=== PATIENT | female | born 1945 | race Caucasian/White ===

== ENCOUNTER → 2024-01-12 09:49 | Outpatient (REF) | payer MEDICARE, OTHER, SELFPAY | LOC: HWRAD 09:49 | PROVIDERS: ATTENDING PHYSICIAN Internal Medicine | DX: M25.551 Pain in right hip (principal) | CPT/HCPCS: 73502 ==

== ENCOUNTER 2024-08-24 18:19 | Emergency (ER) | payer MEDICARE, OTHER, SELFPAY ==
[2024-08-24 18:20] VITALS: BP 174/103
[2024-08-24 19:04] LABS: COVID-19 Antigen Negative (Negative)
--- NOTE | 2024-08-24 20:29 | ED.GENMED ---
History of Present Illness
General
Chief Complaint: Head Injury
Source: patient
Time Seen by Provider: 08/24/24 20:09
History of Present Illness
History of Present Illness:
79-year-old female presents to the emergency room complaining of having a head injury. Patient fell yesterday struck her head. No loss of consciousness. Patient felt as if she was having some memory issues today. She informed her family of this
event prompting their visit to the emergency room. Patient denies any focal weakness. Patient has had several falls recently. They felt falls were related to medication interactions. Her meds were adjusted and she was better. A fall yesterday
occurred because her leg had 'fallen asleep' after having it in a single position while sitting for extended period of time. When she stood up her leg gave out she fell. Currently she is able to walk at her baseline. She should use a walker but
frequently does not. Family also note the patient's had persistent cough for the past week or so. No fever.
Phy Exam
Physical Exam
Physical Exam:
General: Awake, Alert, Oriented X3. No acute distress.
Vitals: unremarkable
Head: Atraumatic
Eyes: Pupils equal, EOMI
Throat: Airway intact, no exudates
Neck: Trachea midline
Lungs: Clear and equal b/l
Heart: Regular rate, no murmurs
Abd: Soft, Nontender, No pulsatile mass
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
Skin: Warm, dry, no rash
Extremities: pulses equal b/l, no edema
Course
Orders/Labs/Results
Orders:
Orders
08/24/24 18:32
COVID-19 Antigen Urgent
Source: Nasal Swab
Influenza A+B Rapid Molecular Urgent
ANA Source: Nasal Swab
Specimen Description:
08/24/24 20:28
CT Head W/o Iv Contrast Urgent
Comment:
Reason For Exam: fall, head injury
CR Chest - 2 Views Urgent
Comment:
Reason For Exam: persistent cough
Vital Signs
Initial and Last Documented VS:
Initial Vital Signs
Temp Pulse Resp BP Pulse Ox
97.9 F 66 20 174/103 94
08/24/24 18:20 08/24/24 18:20 08/24/24 18:20 08/24/24 18:20 08/24/24 18:20
Last Documented Vital Signs
Temp Pulse Resp BP Pulse Ox
97.9 F 67 20 152/90 95
08/24/24 18:20 08/24/24 22:00 08/24/24 22:00 08/24/24 22:00 08/24/24 22:00
MDM/Problems Addressed
Differential Diagnosis Includes:
Closed head injury, subdural, positive dementia, pneumonia, acute bronchitis
MDM/Problems Addressed:
Patient presents for evaluation due to some memory issues. Patient did fall yesterday. Head CT shows no acute abnormalities though she does have chronic changes. Patient's daughter was able to pull up a CT report from outside institution which is
consistent with CT report today. Patient has residual meningioma with very similar dimensions. Chest x-ray today shows no acute infiltrate. Patient had a cough for over 10 days. Will treat with doxycycline.
*Radiology
Radiology exam reviewed: radiology read reviewed
*Pulse Oximetry
Patient hypoxic: no
*Critical Care Note
Total Time (30-74mins, 75-104mins- exclusive of procedures): Not Applicable
ED Attending Note
-
Portions of this chart may have been created with voice recognition software.� Occasional wrong word or��sound alike� substitutions may have occurred due to the inherent limitations of voice recognition software.
Discharge Plan
Departure
Patient Disposition: Home (Routine Discharge)
Date of Disposition: 08/24/24
Time of Disposition: 22:21
Patient with high blood pressure during this ER visit?: Yes
Discharge Problem:
Head injury, Acute bronchitis
Instructions: Minor Head Injury (DC), Bronchitis, Adult ED, BLOOD PRESSURE
Prescriptions:
New
doxycycline hyclate 100 mg capsule
100 mg PO BID 7 Days Qty: 14 0RF
Referrals:
Judith Young MD [Family Provider] -
Interventions
Interventions:
*Risk Screen - Suicide Last Done: 08/24/24 20:52
*General Assessment Last Done: 08/24/24 20:52
*Neglect/Abuse Screening Last Done: 08/24/24 20:52
ED- Fall Risk Assessment Last Done: 08/24/24 20:51
*ED COVID-19 Vaccine History Last Done: 08/24/24 20:52
*Nursing Disposition Last Done: 08/24/24 22:38
ED- Neurological Assessment Last Done: 08/24/24 20:51
ED-Skin Assessment Last Done: 08/24/24 20:51
Discharge Date and Time
Discharge Date/Time: 08/24/24 22:40
Print Language: GUAMANIAN
[2024-08-24 20:50] VITALS: BMI 33.8
[2024-08-24 22:00] VITALS: BP 152/90
== END 2024-08-24 22:40 | disposition home or self-care (01) ==
LOC: EMR 18:19
PROVIDERS: Emergency Medicine; EMERGENCY PHYSICIAN Emergency Medicine; FAMILY PHYSICIAN Internal Medicine
DX: S09.90XA Unspecified injury of head, initial encounter (principal); W19.XXXA Unspecified fall, initial encounter; J20.9 Acute bronchitis, unspecified; D32.0 Benign neoplasm of cerebral meninges
CPT/HCPCS: 99284; 70450; 71046; 87502; 87811

== ENCOUNTER 2025-01-26 14:06 | Emergency (ER) | payer MEDICARE, OTHER, SELFPAY ==
[2025-01-26 14:09] VITALS: BP 138/79
[2025-01-26 14:41] VITALS: BMI 34.0
--- NOTE | 2025-01-26 15:07 | ED.GENMED ---
History of Present Illness
General
Chief Complaint: Head Injury
Time Seen by Provider: 01/26/25 14:18
History of Present Illness
History of Present Illness:
79-year-old female with history of dementia presenting for fall with head strike. Patient reports prior to arrival she was trying to put her shoes on and she lost her balance and fell. Patient arrives with daughter who notes frequent falls. She
reports that she did strike the left parietal aspect of her head on a door frame. Denies loss of consciousness. She is not on any blood thinners. She reports mild headache. Denies any neck pain. Denies any additional injuries from the fall.
Denies any additional acute medical complaints
Phy Exam
Physical Exam
Physical Exam:
General: Well-appearing, no clinical signs of dehydration, nontoxic and in no acute distress
Head: Mild left parietal hematoma
HEENT: protecting airway
Neck: appears supple
CV: Normal heart rate, regular rhythm
Resp: No accessory muscle use, no increased work of breathing, lungs clear to auscultation bilaterally
Abd: Soft and non-distended, no tenderness to palpation
Extremities: No deformities, no swelling
Neuro: alert, no focal neurologic deficit
: deferred
Rectal: deferred
Psych: Normal affect
Skin: Intact
Course
Orders/Labs/Results
Orders:
Orders
01/26/25 14:09
CT Head W/o Iv Contrast Urgent
Comment:
Reason For Exam: fall
Vital Signs
Initial and Last Documented VS:
Initial Vital Signs
Temp Pulse Resp BP Pulse Ox
98.0 F 58 16 138/79 98
01/26/25 14:09 01/26/25 14:09 01/26/25 14:09 01/26/25 14:09 01/26/25 14:09
Last Documented Vital Signs
Temp Pulse Resp BP Pulse Ox
98.0 F 58 16 138/79 98
01/26/25 14:09 01/26/25 14:09 01/26/25 14:09 01/26/25 14:09 01/26/25 14:09
MDM/Problems Addressed
MDM/Problems Addressed:
79-year-old female with history of dementia presenting after a fall from standing with head strike. Vitals on arrival are normal.
On exam, patient resting comfortably, no acute distress or discomfort. Mild left parietal hematoma. No midline cervical neck tenderness. Patient awake, alert, oriented without any additional signs of trauma. Given patient's age, plan for CT
brain imaging. Patient denies any prodromal symptoms to the fall such as lightheadedness or dizziness. Without present concern for syncope or near syncope.
15:20 - CT without acute intracranial abnormality. At this time feel stable for discharge with outpatient supportive therapy. Return precautions discussed with patient and daughter at bedside who verbalized understanding
*Critical Care Note
Total Time (30-74mins, 75-104mins- exclusive of procedures): Not Applicable
ED Attending Note
-
Portions of this chart may have been created with voice recognition software.� Occasional wrong word or��sound alike� substitutions may have occurred due to the inherent limitations of voice recognition software.
Discharge Plan
Departure
Patient Disposition: Home (Routine Discharge)
Date of Disposition: 01/26/25
Time of Disposition: 15:23
Patient with high blood pressure during this ER visit?: No
Condition: Good
Discharge Problem:
Head injury, Hematoma of parietal scalp
Instructions: Head Injury in Adults (DC), Contusion (DC)
Prescriptions:
No Action
doxycycline hyclate 100 mg capsule
100 mg PO BID 7 Days Qty: 14 0RF
Referrals:
Kinjal Young NP [Family Provider] -
Activity Restrictions/Additional Instructions:
You were seen in the emergency department for fall
You were found to have normal CT of your brain.
Please follow-up closely with your primary care physician.
Return to the emergency department for any worsening of your symptoms, or any development of chest pain, difficulty breathing, abdominal pain with persistent vomiting and inability to tolerate food or liquid by mouth (concern for dehydration),
weakness, headache or confusion, fever greater than 100.4, or any additional symptoms that are concerning to you.
Thank you for choosing [facility].
Interventions
Interventions:
*Risk Screen - Suicide Last Done: 01/26/25 14:09
*General Assessment Last Done: 01/26/25 14:41
*Neglect/Abuse Screening Last Done: 01/26/25 14:09
*ED COVID-19 Vaccine History Last Done: 01/26/25 14:41
ED- Neurological Assessment Last Done: 01/26/25 14:41
ED-Skin Assessment Last Done: 01/26/25 14:41
Discharge Date and Time
Print Language: HONDURAN
[2025-01-26 15:31] VITALS: BP 136/80
== END 2025-01-26 15:32 | disposition home or self-care (01) ==
LOC: EMR 14:06
PROVIDERS: EMERGENCY PHYSICIAN Student in an Organized Health Care Education/Training Program; FAMILY PHYSICIAN Nurse Practitioner
DX: S09.90XA Unspecified injury of head, initial encounter (principal); S00.03XA Contusion of scalp, initial encounter; W19.XXXA Unspecified fall, initial encounter; F03.90 Unspecified dementia, unspecified severity, without behavioral disturbance, psychotic disturbance, mood disturbance, and anxiety
CPT/HCPCS: 99284; 70450

== ENCOUNTER 2025-10-07 19:00 | Observation (INO) | payer MEDICARE, OTHER, SELFPAY ==
[2025-10-07 14:01] VITALS: BP 143/69
--- NOTE | 2025-10-07 15:07 | ED.GENMED ---
History of Present Illness
<Allison Melissa PA-C - Last Filed: 10/07/25 19:55>
General
Chief Complaint: Cough
Source: patient
Exam Limitations: none
Time Seen by Provider: 10/07/25 14:44
History of Present Illness
History of Present Illness:
80yoF with a history of dementia, hypertension, hyperlipidemia, recurrent sarcoma of R thigh, and hypothyroidism presenting with her daughter for evaluation of shortness of breath. History is provided by daughter at bedside due to patient's
underlying dementia. She started to become sick 2-3 days ago with cough and dyspnea. Family has also noticed wheezing. She has been complaining of chest pain with coughing. She denies any chest pain currently. No fevers. Patient's family
member is currently sick with the flu.
Phy Exam
<Allison Melissa PA-C - Last Filed: 10/07/25 19:55>
General Physical Exam
General Presentation: well appearing and no apparent distress
General Skin: warm and dry
General Habitus: normal
General Mental: alert
ENT Exam
ENT Exam: normocephalic
Cardiovascular Exam
Cardiovascular Exam: regular rate/rhythm and no edema
Pulmonary Exam
Pulmonary Exam: no respiratory distress, generalized wheezing and other (Scant expiratory wheezes noted)
Neurological Exam
Neurological Exam: alert
Skin Exam
Skin Exam: normal color and warm/dry
Psychiatric Exam
Psychiatric Exam: normal mood/affect
Course
<Allison Melissa PA-C - Last Filed: 10/07/25 19:55>
Orders/Labs/Results
Orders:
Orders
10/07/25 14:08
Chest [CR Chest - 2 Views ] Urgent
Comment:
Reason For Exam: cough
10/07/25 15:06
Electrocardiogram (*1) Urgent
Reason for Study: Chest Pain
EKG- Treatment ONCE
Ipratropium/Albuterol Sulfate [Duoneb] 3 ml INH R NOW STA
10/07/25 15:17
COVID-19 Antigen Urgent
Source: Nasal Swab
Complete Blood Count/With Diff Urgent
Comprehensive Metabolic Panel Urgent
Troponin I Urgent
Influenza A+B Rapid Molecular Urgent
ANA Source: Nasal Swab
Specimen Description:
10/07/25 16:03
Oseltamivir Phosphate [Tamiflu] 75 mg PO NOW STA
10/07/25 18:10
Admit/Transfer Patient As Directed
Co-Sign Provider:
Level of Care: Observation services
Assign to:: Medical/Surgical
Physician / Group: Htay
Diagnosis: Influenza, Bronchitis
PRN Pain Medication Management As Directed
May give lesser potent ordered pain med per pt: Yes
preference::
Protocol:: Medication orders for pain may be administered in a
manner that supports deferring to patient preference
when the pt is:
- Requesting an ordered lesser potent pain medication.
Least to most potent pain medications are defined
as: acetaminophen < NSAID < tramadol < opioids
(morphine, oxycodone, hydromorphone).
- Requesting a lesser dose of the same medication IF
ORDERED.
- Requesting a less intrusive route of administration
if both routes are prescribed by the provider (PO <
IV).
10/07/25 18:12
Code Status As Directed
Resuscitation Status: Full Code
Abnormal Lab Results
10/07/25
15:17
MPV 11.7 H fL
(7.4-10.4)
Absolute Lymphs (auto) 1.0 L 10^3/uL
(1.2-3.4)
Absolute Monos (auto) 1.0 H 10^3/uL
(0.1-0.6)
Lymphocytes % 18.5 L %
(20.5-51.1)
Monocytes % 19.0 H %
(1.7-9.3)
Glucose 139 H mg/dl
(70-99)
10/07/25 15:17
10/07/25 15:17
Vital Signs
Initial and Last Documented VS:
Initial Vital Signs
Temp Pulse Resp BP Pulse Ox
97.6 F 71 20 143/69 93
10/07/25 14:01 10/07/25 14:01 10/07/25 14:01 10/07/25 14:01 10/07/25 14:01
Last Documented Vital Signs
Temp Pulse Resp BP Pulse Ox
97.6 F 70 15 142/73 97
10/07/25 14:01 10/07/25 16:30 10/07/25 16:30 10/07/25 16:00 10/07/25 16:15
<Kinjal Villafuerte, DO - Last Filed: 10/07/25 16:39>
Orders/Labs/Results
Orders:
Orders
10/07/25 14:08
Chest [CR Chest - 2 Views ] Urgent
Comment:
Reason For Exam: cough
10/07/25 15:06
Electrocardiogram (*1) Urgent
Reason for Study: Chest Pain
EKG- Treatment ONCE
Ipratropium/Albuterol Sulfate [Duoneb] 3 ml INH R NOW STA
10/07/25 15:17
COVID-19 Antigen Urgent
Source: Nasal Swab
Complete Blood Count/With Diff Urgent
Comprehensive Metabolic Panel Urgent
Troponin I Urgent
Influenza A+B Rapid Molecular Urgent
ANA Source: Nasal Swab
Specimen Description:
10/07/25 16:03
Oseltamivir Phosphate [Tamiflu] 75 mg PO NOW STA
10/07/25 18:10
Admit/Transfer Patient As Directed
Co-Sign Provider:
Level of Care: Observation services
Assign to:: Medical/Surgical
Physician / Group: Htay
Diagnosis: Influenza, Bronchitis
PRN Pain Medication Management As Directed
May give lesser potent ordered pain med per pt: Yes
preference::
Protocol:: Medication orders for pain may be administered in a
manner that supports deferring to patient preference
when the pt is:
- Requesting an ordered lesser potent pain medication.
Least to most potent pain medications are defined
as: acetaminophen < NSAID < tramadol < opioids
(morphine, oxycodone, hydromorphone).
- Requesting a lesser dose of the same medication IF
ORDERED.
- Requesting a less intrusive route of administration
if both routes are prescribed by the provider (PO <
IV).
10/07/25 18:12
Code Status As Directed
Resuscitation Status: Full Code
Abnormal Lab Results
10/07/25
15:17
MPV 11.7 H fL
(7.4-10.4)
Absolute Lymphs (auto) 1.0 L 10^3/uL
(1.2-3.4)
Absolute Monos (auto) 1.0 H 10^3/uL
(0.1-0.6)
Lymphocytes % 18.5 L %
(20.5-51.1)
Monocytes % 19.0 H %
(1.7-9.3)
Glucose 139 H mg/dl
(70-99)
10/07/25 15:17
10/07/25 15:17
Vital Signs
Initial and Last Documented VS:
Initial Vital Signs
Temp Pulse Resp BP Pulse Ox
97.6 F 71 20 143/69 93
10/07/25 14:01 10/07/25 14:01 10/07/25 14:01 10/07/25 14:01 10/07/25 14:01
Last Documented Vital Signs
Temp Pulse Resp BP Pulse Ox
97.6 F 70 15 142/73 97
10/07/25 14:01 10/07/25 16:30 10/07/25 16:30 10/07/25 16:00 10/07/25 16:15
<Allison Melissa PA-C - Last Filed: 10/07/25 19:55>
MDM/Problems Addressed
Differential Diagnosis Includes:
80yoF here with cough and wheezing x 2-3 days. Family member currently sick with the flu. Oxygen saturation 90-92% on initial exam. Scant expiratory wheezes noted. Differential diagnosis includes: influenza, bronchitis, pneumonia, doubt ACS
Initial ED plan: Check cardiac labs, EKG, COVID/flu swab, and CXR. DuoNeb and reassess.
<Allison Melissa PA-C - Last Filed: 10/07/25 19:55>
*Pulse Oximetry
SaO2: 93
Oxygen Mode of Delivery: Room air
*EKG
Interpreted by ED Provider?: Yes
EKG Intrepretation Date: 10/07/25
Heart Rate: 68
Rate: normal
Rhythm: sinus
[place]: normal axis
QRS Pattern: right bundle branch block
Ischemia: non-specific ST changes
*Critical Care Note
Total Time (30-74mins, 75-104mins- exclusive of procedures): Not Applicable
<Kinjal Villafuerte DO - Last Filed: 10/07/25 16:39>
*Pulse Oximetry
Patient hypoxic: yes
<Allison Melissa PA-C - Last Filed: 10/07/25 19:55>
Update Note
Update Note:
Patient tested positive for influenza A. Chest x-ray clear without infiltrates. Labs overall unremarkable. Patient desaturated to 87% while in the emergency department and she was placed on 3L NC. Given hypoxia, will admit. Dose of Tamiflu
given in ED.
ED Attending Note
<Allison Melissa PA-C - Last Filed: 10/07/25 19:55>
-
Portions of this chart may have been created with voice recognition software.� Occasional wrong word or��sound alike� substitutions may have occurred due to the inherent limitations of voice recognition software.
<Kinjal Villafuerte DO - Last Filed: 10/07/25 16:39>
ED Attending Note
Patient seen and examined by attending physician: Yes
I performed the substantive portion of visit, reviewed & personally made and approve the management plan that is documented in note by myself or DAPHNIE.: Yes
I performed a history and physical exam of patient and discussed management with resident, I reviewed resident's note and agree with documented findings and plan of care.: Yes
ED Attending Note:
80-year-old female presenting to the emergency department for cough and shortness of breath. Patient arrives with daughter who notes symptoms for the past 3 to 4 days of sick contacts at home. Patient noted to be hypoxic on arrival. Daughter
denies any known history of pulmonary disease. Patient is not O2 dependent. Vital signs on arrival for hypoxia.
On exam, patient stable on supplemental O2. No increased work of breathing with rhonchi to bilateral lung umana. And examined by me physician records management assistant prior to initiating laboratory analysis, chest x-ray imaging, viral swabs. Chest x-ray
without any sign of pneumonia. Patient however is positive for influenza, acute symptoms. In the setting of hypoxia, plan for admission for oxygen support and Tamiflu. Patient agreeable to plan
Discharge Plan
Departure
Patient Disposition: Admit
Date of Disposition: 10/07/25
Time of Disposition: 16:18
Presentation/result/management discussed w/ accepting MD/DO: Hospitalist
Discharge Problem:
Influenza A, Acute hypoxic respiratory failure
Interventions
Interventions:
*Risk Screen - Suicide Last Done: 10/07/25 14:01
*General Assessment Last Done: 10/07/25 14:01
*Neglect/Abuse Screening Last Done: 10/07/25 14:01
*ED COVID-19 Vaccine History Last Done: 10/07/25 16:34
*ED Influenza Vaccine History Last Done: 10/07/25 16:34
[facility] Risk Assessment Tool Last Done: 10/07/25 16:34
ED- Pulmonary Assessment Last Done: 10/07/25 15:29
[2025-10-07] MEDS: DUONEB 3 ML INH ×2 (15:28→20:23)
[2025-10-07 15:41] LABS: Hematocrit 41.7 % (37.0-47.0); Hemoglobin 13.9 g/dL (12.0-16.0); Mean Corp Hgb Conc. 33.3 g/dL (33.0-37.0); Mean Corpuscular Volume 91.0 fL (81.0-99.0); Nucleated Red Blood Cells % 0 %; Platelet Count 136 10^3/uL (130-400); Red Cell Dist. Width 13.0 % (11.5-14.5)
[2025-10-07 15:52] LABS: COVID-19 Antigen Negative (Negative)
[2025-10-07 16:00] VITALS: BP 142/73
[2025-10-07 16:01] LABS: ALT (SGPT) 22 U/L (0-35); AST (SGOT) 28 U/L (14-36); Albumin 3.9 g/dl (3.5-5.0); Alkaline Phosphatase 57 U/L (38-126); Blood Urea Nitrogen 14 mg/dl (7-17); Calcium 8.9 mg/dl (8.4-10.2); Carbon Dioxide 29 mmol/L (22-30); Chloride 103 mmol/L (98-107); Glucose 139 mg/dl (70-99); Potassium 3.9 mmol/L (3.5-5.1); Sodium 136 mmol/L (135-145); Total Protein 6.3 g/dl (6.3-8.2); eGFR > 60.00
[2025-10-07 16:12] LABS: Troponin I 0.026 ng/ml
--- NOTE | 2025-10-07 16:32 | PHANOTE ---
med rec note -called alf at [phone] for missing medication, patient recently moved to [facility] and they take care of her medication. awaking fax
[2025-10-07] MEDS: TAMIFLU 75 MG PO (17:10)
--- NOTE | 2025-10-07 17:52 | HPS.HSE ---
Family Physician
-
Family Physician: NOT KNOW UNKNOWN - PT DOES
Chief Complaint
-
Cough
History of Present Illness
Patient is an 80 y/0 female past medical history of hypertension, hyperlipidemia, hypothyroidism, and dementia who presents with cough. Daughter initially noticed the cough two days ago, but notes patient could have had the cough the day before
that. Cough has continued to worsen, and daughter noted wheezing. Patient also complains of central chest pain when she coughs. Patient reports cough is non-productive, but I note it sounds very moist during my evaluation. There are no reports of
fevers. Daughter noted several family members have recently tested positive for the flu.
Medical History
Past Medical History
Past Medical History: Reports Other
Additional Past Medical History:
Essential Hypertension
Hyperlipidemia
Hypothyroidism
Obesity
Right Lower Ext Sarcoma s/p Resection
Breast Cancer s/p Left Lumpectomy and XRT
Parotid Cancer s/p Left parotidectomy
Past Surgical History: Reports Other
Additional Past Surgical History:
Partial Colectomy for perforate diverticulitis
Right Total Knee Replacement
Social History
Tobacco: Non-smoker
Alcohol: Other (Rare)
Living: Assisted Living
Family History
Family History: Not pertinent
Allergies / Home Medications
Allergies reflects when Allergies were last updated in [facility].
Home Medications with original date entered in [facility]
Allergy/Medication List:
Allergies
Allergy/AdvReac Type Severity Reaction Status Date / Time
No Known Allergies Allergy Verified 10/07/25 14:01
Home Medications
acetaminophen 325 mg tablet (Tylenol) 650 mg PO Q6HPRN PRN mild pain 10/07/25
amlodipine 5 mg tablet (Norvasc) 5 mg PO QPM Blood Pressure 10/07/25
cholecalciferol (vitamin D3) 25 mcg (1,000 unit) tablet (Vitamin D3) 25 mcg PO QPM 10/07/25
donepezil 10 mg tablet 10 mg PO HS Mental Health/Anxiety 10/07/25
levothyroxine 112 mcg tablet (Synthroid) 112 mcg PO DAILY Thyroid 10/07/25
mirabegron 50 mg tablet,extended release 24 hr (Myrbetriq) 50 mg PO HS Urinary Issue 10/07/25
rosuvastatin 5 mg tablet (Crestor) 5 mg PO QPM High Cholesterol 10/07/25
Review of Systems
-
Unable to obtain full review of systems at this time due to: Dementia
History Source: Patient and Family
Constitutional: Denies Fever
Respiratory: Reports See HPI
Physical Exam
Vital Signs
Vital Signs
Temp Pulse Resp BP Pulse Ox
97.6 F 70 15 142/73 97
10/07/25 14:01 10/07/25 16:30 10/07/25 16:30 10/07/25 16:00 10/07/25 16:15
Physical Exam
General: Comfortable, Conversant and Obese
HEENT: Anicteric and Moist mucous membranes; No Oxygen (Nasal cannula noted to be around patient's ear and not in her nose upon my evaluation - Pulse ox checked at this time 95% on RA)
Respiratory: Clear and Non Labored Respirations; No Wheezes
Cardiac: S1/S2 and Regular Rhythm; No Murmur
GI: Soft and Non Distended
Rectal: Deferred by Provider
Musculoskeletal: No Clubbing and No Cyanosis
Skin: Warm and Dry
Neuro: Awake, Alert and Nonfocal/grossly intact
Psych: Calm
Laboratory Results
-
10/07/25 15:17
10/07/25 15:17
Laboratory Results
Total Bilirubin 0.5 mg/dl (0.2-1.3) 10/07/25 15:17
AST 28 U/L (14-36) 10/07/25 15:17
ALT 22 U/L (0-35) 10/07/25 15:17
Alkaline Phosphatase 57 U/L (38-126) 10/07/25 15:17
Troponin I 0.026 ng/ml 10/07/25 15:17
Data Reviewed
-
Lab Data: Labs Reviewed by me
Old Records: Reviewed
Impression/Plan
-
Acute Bronchitis secondary to Influenza Type A viral infection
-Continue Tamiflu
-Continue DuoNeb PRN
-Continue Mucinex
-Monitor pulse ox
Essential Hypertension
-Continue amlodipine
Hyperlipidemia
-Continue Crestor
Hypothyroidism
-Continue levothyroxine
Dementia, unknown type suspect Alzheimer's
-Continue donepezil
-Patient recently moved to assisted living facility
-Monitor for mood/behavior changes
DVT proph: Lovenox
Code Status: Full Code
--- NOTE | 2025-10-07 18:33 | W.PN.UPDATE ---
Update Note
Progress Note Update
This note serves as an addendum to the H&P by electric utility lineworker DAPHNIE�Eugenie DIAZTRINITY
HPI�
80F with dementia
PMH: hypertension, hyperlipidemia, hypothyroidism
- seen at ER pw cough - daughter initially noticed the cough two days ago
- cough has continued to worsen, and daughter noted wheezing.
- central CP - non-productive very moist
- fevers
- POS for Flu A
Relevant VS
Temp Pulse Resp BP Pulse Ox
97.6 F 70 15 142/73 97
10/07/25 14:01 10/07/25 16:30 10/07/25 16:30 10/07/25 16:00 10/07/25 16:15
PE
Gen: NAD , conversant
HEENT: wearing NC O2
Neck: supple
Lungs: Wheezes anteriorly , b/l
Cor: RRR S1 S2
Abdomen:�soft NT NG NRT
LABORATORY APPARATUS GLASS BLOWER: Awake, Alert and Nonfocal/grossly intact
MS: no edema
Psych: appropriate
Relevant Data
10/07/25
15:17
WBC 5.2
Hgb 13.9
Plt Count 136
Creatinine 0.7
eGFR > 60.00
Troponin I 0.026
EKG report
NORMAL SINUS RHYTHM
RIGHT BUNDLE BRANCH BLOCK
CANNOT RULE OUT INFERIOR INFARCT , AGE UNDETERMINED
ABNORMAL ECG
NO PREVIOUS ECGS AVAILABLE
CXR : No acute process
Last hospitalist admission:
ASSESSMENT & PLAN
Acute Asthmatic Bronchitis due to acute viral infection with Flu A
- agree with Tamiflu
- add IV Decadron 2mg q12h
- DuoNeb PRN and QID
- Mucinex
- Monitor POx
Essential HTN
- on amlodipine
Hyperlipidemia
- on Crestor
Hypothyroidism
- on LT4
Dementia, unknown type suspect Alzheimer's
-Continue donepezil
-Patient recently moved to assisted living facility
-Monitor for mood/behavior changes
DVT proph: Lovenox
Code Status: Full Code
OBS MS
[2025-10-07 19:54] VITALS: BMI 37.0
[2025-10-07 20:20] VITALS: BP 125/66
[2025-10-07] MEDS: ARICEPT 10 MG PO (21:30)
[2025-10-07] MEDS: DECADRON 2 MG IV (21:31)
[2025-10-07] MEDS: MUCINEX 600 MG PO (21:31)
[2025-10-07 23:00] VITALS: BP 136/59
[2025-10-08 07:20] VITALS: BP 162/90
[2025-10-08] MEDS: DUONEB 3 ML INH ×4 (07:34→19:35)
[2025-10-08] MEDS: DECADRON 2 MG IV ×2 (08:42→21:49)
[2025-10-08] MEDS: SYNTHROID 112 MCG PO (08:42)
[2025-10-08] MEDS: MUCINEX 600 MG PO ×2 (08:42→21:51)
[2025-10-08] MEDS: TAMIFLU 75 MG PO ×2 (08:42→21:51)
--- NOTE | 2025-10-08 10:22 | W.PN.HOSP.TC ---
Addendum entered and electronically signed by Scar Callejas MD 10/08/25 12:37:
Discussed with 2 daughters over the phone in details.
Original Note:
Today's Communication/Plan
-
symptomatic treatment
cont tamiflu
steroids
nebs
pt eval
Assessment / Plan
Assessment / Plan
General: Comfortable, Conversant and Obese
HEENT: Anicteric and Moist mucous membranes;
Respiratory: +exp wheezing
Cardiac: S1/S2 and Regular Rhythm; No Murmur
GI: Soft and Non Distended
Rectal: Deferred by Provider
Musculoskeletal: No Clubbing and No Cyanosis
Skin: Warm and Dry
Neuro: Awake, Alert and Nonfocal/grossly intact
Psych: Calm
Acute Bronchitis secondary to Influenza Type A viral infection
-Continue Tamiflu
-Continue DuoNeb PRN
-Continue Mucinex
-Monitor pulse ox. Cont steroids-short course.
Essential Hypertension
-Continue amlodipine
Hyperlipidemia
-Continue Crestor
Hypothyroidism
-Continue levothyroxine
Dementia, unknown type suspect Alzheimer's
-Continue donepezil
-Patient recently moved to assisted living facility
-Monitor for mood/behavior changes
DVT proph: Lovenox
Code Status: Full Code
PT eval -may require placement
Anticipated Discharge: Within 24 hours
Subjective/Interval History
-
Date of Service: October 08, 2025
feeling weak
states of severe cough-dry
Objective Data
-
Vital Signs:
Vital Signs
Temp Pulse Resp BP Pulse Ox
98.9 F 75 18 162/90 95
10/08/25 07:20 10/08/25 08:21 10/08/25 08:21 10/08/25 07:20 10/08/25 08:21
I&O
10/07/25 10/08/25 10/09/25
06:59 06:59 06:59
Intake Total 480 / 480
Balance 480 / 480
Data Reviewed
-
Total Time Spent with Patient (in minutes): 55
--- NOTE | 2025-10-08 12:12 | CM ---
Patient seen at bedside on . Patient states she lives in [facility] but the daughters updated Cm that the patient now lives in the personal care at [facility] and she moved this week, on thu. Patient seen 3x daily at the facility and patient
was going to cafe prior to admission. Patient has not met new physician at this time, Pharmacy at [facility] providing supports. Gil was her VN previously when at [facility]. Nurse at [facility] is Lexi and she can be reached at her office
[phone]/cell [phone]. Patient may need VN supports pending therapy recommendation. Cm will continue to follow for discharge planning needs.
Plan; return to [facility] and watch for Vn needs.
[2025-10-08] MEDS: REFRESH EYE DROPS (PF) 1 DROPS OPHTH (13:57)
[2025-10-08 15:20] VITALS: BP 148/75
[2025-10-08 15:21] VITALS: BP 129/54
[2025-10-08] MEDS: NORVASC 5 MG PO (17:36)
[2025-10-08] MEDS: LOVENOX 40 MG SC (17:37)
[2025-10-08] MEDS: CRESTOR 5 MG PO (17:37)
[2025-10-08] MEDS: ARICEPT 10 MG PO (21:51)
[2025-10-08 23:23] VITALS: BP 156/86
[2025-10-09 07:11] VITALS: BP 162/82
[2025-10-09] MEDS: DUONEB 3 ML INH (07:36)
[2025-10-09] MEDS: SYNTHROID 112 MCG PO (07:49)
[2025-10-09] MEDS: MUCINEX 600 MG PO (08:35)
[2025-10-09] MEDS: TAMIFLU 75 MG PO (08:35)
[2025-10-09] MEDS: DECADRON 2 MG IV (08:38)
[2025-10-09 09:14] LABS: Hematocrit 46.6 % (37.0-47.0); Hemoglobin 15.5 g/dL (12.0-16.0); Mean Corp Hgb Conc. 33.3 g/dL (33.0-37.0); Mean Corpuscular Volume 90.0 fL (81.0-99.0); Nucleated Red Blood Cells % 0 %; Platelet Count 165 10^3/uL (130-400); Red Cell Dist. Width 13.2 % (11.5-14.5)
[2025-10-09 09:29] LABS: Blood Urea Nitrogen 17 mg/dl (7-17); Calcium 9.8 mg/dl (8.4-10.2); Carbon Dioxide 27 mmol/L (22-30); Chloride 102 mmol/L (98-107); Estimated Creatinine Clearance 76 ml/min; Glucose 124 mg/dl (70-99); Potassium 4.0 mmol/L (3.5-5.1); Sodium 138 mmol/L (135-145); eGFR > 60.00
--- NOTE | 2025-10-09 10:37 | CM ---
Chart reviewed. Discharge placed for patient
OJ called [facility], spoke w/ nurse, Lexi, making aware of discharge today. Reviewed new scripts for patient, informed facility's pharmacy received scripts. Lexi requesting updated clinical notes, no nursing report needed.
Update to patient's daughters, Francesca and Ada. Per Ada, would like w/c van arranged for patient. Ada aware of $115 payment, agreeable. CM provided Acute Care number
[facility]

Plan: Return to [facility]
[2025-10-09 14:09] VITALS: BP 152/91
--- NOTE | 2025-10-09 16:34 | W.DCSUMMARY ---
Discharge Summary
Discharge Data
Date of Admission: 10/07/25
Date of Discharge: 10/09/25
-
Pending Results: No
Hospital Course
Discharging Physician : Dr Cale Smiht
Disposition : Assisted living
Primary care physician : Unknown
Principal Discharge diagnosis :
Influenza A viral infection
Chronic Discharge diagnosis :
Essential hypertension
Hyperlipidemia
Hypothyroidism
Alzheimer's dementia
Physical examination:
General: Comfortable, Conversant and Obese
HEENT: Anicteric and Moist mucous membranes;
Respiratory: no wheezing
Cardiac: S1/S2 and Regular Rhythm; No Murmur
GI: Soft and Non Distended
Neuro: Awake, Alert and Nonfocal/grossly intact
Hospital Course :
Patient is a 80-year-old female with above-mentioned past patient is a 80-year-old female with above-mentioned past medical history came to ER with new onset of worsening cough and some wheezing. Patient had a chest x-ray in ER which ruled out any
active pulmonary infection. Patient was checked for flu and was tested positive for flu A. Patient was started on Tamiflu and steroid therapy. Patient had improvement in symptoms in 48 hours. Patient did not have any further complications and
was discharged to assisted living with finishing course of Tamiflu and prednisone. Patient to follow-up with primary care physician in office in 1 week.
Important imaging findings :
None
Procedure findings :
None
Discharge Plan
-
Patient Disposition: Assisted Living
Discharge Diagnosis/Procedures: Influenza A viral Pneumonia
Condition: Fair
Diet: Regular
Activity: As tolerated
Driving Restrictions: No driving
Bathing Restrictions: OK to Shower
Activity Restrictions/Additional Instructions:
Please follow up with Primary care physician in 1 week.
Please use as needed Cough syrup and albuterol inhaler if have cough/shortness of breath issues
Prescriptions:
New
oseltamivir [Tamiflu] 75 mg capsule
75 mg PO BID 5 Days Qty: 10 0RF
prednisone 10 mg Tablet
See Rx Instructions .ROUTE .COMPLEX Qty: 20 0RF
Rx Instructions:
Take By Mouth:
40 mg daily x2 days, 30 mg daily x2 days,
20 mg daily x2 days, 10 mg daily x2 days.
albuterol sulfate [Ventolin HFA] 90 mcg/actuation HFA aerosol inhaler
2 puff inhalation QID PRN (Reason: shortness of breath or wheezing) Qty: 6.7 0RF
dextromethorphan-guaifenesin 5-100 mg/5 mL liquid
10 ml PO Q8H PRN (Reason: Cough) Qty: 500 0RF
Continued
donepezil 10 mg Tablet
10 mg PO HS
amlodipine [Norvasc] 5 mg Tablet
5 mg PO QPM
levothyroxine [Synthroid] 112 mcg Tablet
112 mcg PO DAILY
rosuvastatin [Crestor] 5 mg Tablet
5 mg PO QPM
mirabegron [Myrbetriq] 50 mg Tablet Extended Release 24 Hr
50 mg PO HS
acetaminophen [Tylenol] 325 mg Tablet
650 mg PO Q6HPRN PRN (Reason: mild pain)
cholecalciferol (vitamin D3) [Vitamin D3] 25 mcg (1,000 unit) Tablet
25 mcg PO QPM
Discharge Orders:
Discharge Patient (As Directed); Ordered 10/09/25
Ordered By: Cale Smith
Discharge Date and Time
Discharge Date/Time: 10/09/25 14:56
Print Language: DUTCH
== END 2025-10-09 14:56 | disposition home or self-care (01) ==
LOC: 4 WEST ACU 19:00
PROVIDERS: Hospitalist; Physician Assistant; ADMITTING PHYSICIAN Internal Medicine; ATTENDING PHYSICIAN Hospitalist; EMERGENCY PHYSICIAN Student in an Organized Health Care Education/Training Program
DX: J10.1 Influenza due to other identified influenza virus with other respiratory manifestations (principal); I10 Essential (primary) hypertension; E78.5 Hyperlipidemia, unspecified; E03.9 Hypothyroidism, unspecified; F02.80 Dementia in other diseases classified elsewhere, unspecified severity, without behavioral disturbance, psychotic disturbance, mood disturbance, and anxiety; G30.9 Alzheimer's disease, unspecified; E66.9 Obesity, unspecified; Z85.3 Personal history of malignant neoplasm of breast; Z85.818 Personal history of malignant neoplasm of other sites of lip, oral cavity, and pharynx; Z85.831 Personal history of malignant neoplasm of soft tissue; J20.9 Acute bronchitis, unspecified; Z79.890 Hormone replacement therapy; Z96.651 Presence of right artificial knee joint
CPT/HCPCS: 71046; 80048; 80053; 84484; 85025; 87502; 87811; 93005; 94640; 97162; 99285; G0378